=== PATIENT | female | born 1940 | race Caucasian/White ===

== ENCOUNTER 2023-09-04 15:30 | Emergency (ER) | payer MEDICARE, OTHER, SELFPAY ==
[2023-09-04] VITALS (7 sets, daily range): BP systolic 156–214; BP diastolic 103–126
--- NOTE | 2023-09-04 16:32 | ED.GENMED ---
History of Present Illness
<Alicia Tan PA-C - Last Filed: 09/06/23 00:00>
General
Chief Complaint: Musculo-Skeletal Complaint
Source: patient
Exam Limitations: none
Time Seen by Provider: 09/04/23 15:46
Nursing documentation reviewed up to this point in time: agreed with
Travel History
Have you had any contact with someone who has COVID-19?: No
Do you have any symptoms of coronavirus? Fever > 100 degrees, chills, cough, shortness of breath, sore throat, loss of taste or smell, muscle aches, or headache?: No
History of Present Illness
History of Present Illness:
Patient is a 82 year old female with hypertension, hyperlipidemia, atrial fibrillation on Eliquis presenting for evaluation of right upper arm pain and weakness after a fall earlier today. She states that she was wiping off her car when she slipped
on ice and fell backwards striking the back of her right upper arm on the car. She has since noticed a mild soreness and moderate weakness to the right upper arm. She denies any numbness, tingling in right arm or fingers. Patient has some baseline
weakness in right arm from prior stroke but this is much more severe.
She denies hitting her head or losing consciousness but does state that she fell hard. She denies headache, chest pain, shortness of breath, back pain, visual changes.
Patient is compliant with medications. Patient does take eliquis.
Past History
<Alicia Tan PA-C - Last Filed: 09/06/23 00:00>
Past History
ED Past Medical History: Arrthythmia (A fib on Eliquis), HTN and Other (HOCM)
Social History
Tobacco: Non-smoker
Living: with family
Phy Exam
<Alicia Tan PA-C - Last Filed: 09/06/23 00:00>
Physical Exam
Physical Exam:
General: Well appearing and non-toxic
Vitals: Hypertensive, otherwise VSS, afebrile
HEENT: Atraumatic, normocephalic; pupils equal round reactive to light bilaterally, extraocular muscles intact, protecting airway
Neck: appears supple, no cervical spine or midline spinal tenderness, normal range of motion
CV: Regular rate, irregular rhythm, no evidence of cyanosis
Resp: No evidence of respiratory distress, lungs clear no accessory muscle use
Abd: Non-distended
Extremities: moderate weakness of right upper arm with shortness abduction, weakness of right bicep with flexion; no weakness in wrist flexion/extension or concrete products machine operator strength; No obvious deformity of right upper arm, no bony tenderness to right shoulder,
right elbow, right wrist; sensation intact
Neuro: alert and oriented to person place time, speech normal, no focal neurologic deficit
Psych: Normal affect
Skin: Intact, no bruising or laceration
Course
<Alicia Tan PA-C - Last Filed: 09/06/23 00:00>
Orders/Labs/Results
Orders:
Orders
09/04/23 16:38
CR Shoulder, Trauma - Right Urgent
Reason For Exam: fall, right upper arm pain/weakness
Humerus, Right 2 Views [CR Humerus - Right Min 2 View*] Urgent
Comment:
Reason For Exam: fall, right upper arm pain/ weakness
09/04/23 16:45
CT Head W/o Iv Contrast Urgent
Comment:
Reason For Exam: fall
09/04/23 16:58
Acetaminophen [Tylenol] 650 mg PO NOW STA
09/04/23 17:31
Shoulder Immobilizer Right- Tx ONCE
09/04/23 18:01
Clonidine [Catapres] 0.1 mg PO NOW STA
Losartan [Cozaar] 50 mg PO NOW STA
09/04/23 18:28
Crisis Consult Urgent
Reason for Consult: Moderate risk for SI on screening questions
Vital Signs
Initial and Last Documented VS:
Initial Vital Signs
Temp Pulse Resp BP Pulse Ox
97.6 F 85 18 214/124 96
09/04/23 15:31 09/04/23 15:31 09/04/23 15:31 09/04/23 15:31 09/04/23 15:31
Last Documented Vital Signs
Temp Pulse Resp BP Pulse Ox
97.6 F 94 20 182/103 95
09/04/23 15:31 09/04/23 19:53 09/04/23 19:45 09/04/23 19:53 09/04/23 19:53
<Bob Naylor MD - Last Filed: 09/04/23 19:59>
Orders/Labs/Results
Orders:
Orders
09/04/23 16:38
CR Shoulder, Trauma - Right Urgent
Reason For Exam: fall, right upper arm pain/weakness
Humerus, Right 2 Views [CR Humerus - Right Min 2 View*] Urgent
Comment:
Reason For Exam: fall, right upper arm pain/ weakness
09/04/23 16:45
CT Head W/o Iv Contrast Urgent
Comment:
Reason For Exam: fall
09/04/23 16:58
Acetaminophen [Tylenol] 650 mg PO NOW STA
09/04/23 17:31
Shoulder Immobilizer Right- Tx ONCE
09/04/23 18:01
Clonidine [Catapres] 0.1 mg PO NOW STA
Losartan [Cozaar] 50 mg PO NOW STA
09/04/23 18:28
Crisis Consult Urgent
Reason for Consult: Moderate risk for SI on screening questions
Vital Signs
Initial and Last Documented VS:
Initial Vital Signs
Temp Pulse Resp BP Pulse Ox
97.6 F 85 18 214/124 96
09/04/23 15:31 09/04/23 15:31 09/04/23 15:31 09/04/23 15:31 09/04/23 15:31
Last Documented Vital Signs
Temp Pulse Resp BP Pulse Ox
97.6 F 94 20 182/103 95
09/04/23 15:31 09/04/23 19:53 09/04/23 19:45 09/04/23 19:53 09/04/23 19:53
<Alicia Tan PA-C - Last Filed: 09/06/23 00:00>
MDM/Problems Addressed
Differential Diagnosis Includes:
Brachial plexus injury, rotator cuff injury, humerus fracture, muscle strain, contusion, doubt CVA
MDM/Problems Addressed:
Patient is a 82 year old female presenting for evaluation of right upper arm soreness and weakness following fall earlier today. Patient slipped on ice while wiping off her car slipping and striking her posterior right arm on the car. She has had
mild soreness and weakness in right upper arm since. Patient denies any numbness or tingling in right arm or fingers. She denies hitting her head or LOC. No headache, neck pain, confusion, vomiting. Physical exam as documented above. She is
very well-appearing on exam, significantly hypertensive in triage with a BP of 214/124. History of hypertension but states her BP is usually high but in the 140s/90s she has no obvious deformity of the right upper arm and no bony tenderness of
right arm/shoulder. She does have significant weakness in right upper arm with abduction and flexion of elbow. She has full range of motion in right wrist and concrete products machine operator strength intact. Sensation grossly intact. Will get x-ray of right shoulder and
right humerus. Given impact, hypertension and Eliquis�will get CT of head. Will give Tylenol for pain. Will recheck blood pressure.
X-rays of right arm show an impacted fracture of neck/head of proximal right humerus, nondisplaced. I do suspect some degree of nerve injury given degree of weakness. Will place patient in shoulder immobilizer and have follow-up with orthopedics
outpatient. Patient states pain controlled with Tylenol. CT of head with no acute abnormality.
BP remains high�most recent reading 179/126. Patient remains asymptomatic. patient has as needed clonidine prescription at home that she has not taken today. Will give patient 0.1 mg clonidine, her nighttime dose of losartan 50 Mg. Will reassess
blood pressure prior to discharge
Chronic conditions affecting care:
Atrial fibrillation, hypertension, hyperlipidemia, CVA
Acute Exacerbation and/or Progression of Chronic Illness:
Right proximal humerus fracture, asymptomatic hypertension
<Alicia aTn PA-C - Last Filed: 09/06/23 00:00>
*Radiology
Radiology exam reviewed: preliminary read by ED provider and radiology read reviewed
*Pulse Oximetry
Patient hypoxic: no
*Supervisor Cell Maintenance Interpretation
Rate: Supervisor Cell Maintenance- N/A
*Critical Care Note
Total Time (30-74mins, 75-104mins- exclusive of procedures): Not Applicable
ED Attending Note
<Alicia Tan PA-C - Last Filed: 09/06/23 00:00>
-
Portions of this chart may have been created with voice recognition software.� Occasional wrong word or��sound alike� substitutions may have occurred due to the inherent limitations of voice recognition software.
<Bob Naylor MD - Last Filed: 09/04/23 19:59>
ED Attending Note
Patient seen and examined by attending physician: Yes
I performed the substantive portion of visit, reviewed & personally made and approve the management plan that is documented in note by myself or JES.: Yes
ED Attending Note:
82-year-old female slipped catching her right arm as she fell. Complaining of mild pain in the right arm but mostly complaining of weakness. Does not think she hit her head. Patient is anticoagulated.
On exam patient is nontoxic no distress. Elevated blood pressure. Normocephalic atraumatic. Neck nontender. No chest wall tenderness. No respiratory distress. No obvious areas of ecchymosis. Skin is warm and dry.
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 Patient does apparently have an old CVA. Extension flexion at the wrist within normal limits. Some mild weakness of biceps flexion and definitive weakness with shoulder abduction. No point tenderness to
the upper arm. No ecchymosis. Good distal pulses and color.
Impression impacted fracture right humerus. Suspect some nerve damage brachial plexus or related to the fracture. Also significant blood pressure elevation. Asymptomatic with this however. Will give a dose of her clonidine along with her regular
blood pressure medication. Finally patient apparently had some symptoms concerning for depression. Crisis contacted. Patient is not acutely suicidal. No indication for committal.
1954.... BP 182/102. No acute symptoms related to blood pressure. Likely mildly elevated secondary to the humerus fracture also. Stable for discharge to follow-up
Seen and cleared by crisis
Discharge Plan
Departure
Patient Disposition: Home (Routine Discharge)
Date of Disposition: 09/04/23
Time of Disposition: 19:57
Patient with high blood pressure during this ER visit?: Yes
Discharge Problem:
Proximal humerus fracture right, Elevated blood pressure reading roximal , Possible nerve injury right arm, Depression
Instructions: Depression, Adult (DC), Shoulder Fracture (DC), BLOOD PRESSURE
Prescriptions:
No Action
losartan 50 MG tablet
50 mg PO BID
nitroglycerin 0.4 MG tablet, sublingual
0.4 mg sublingual [id number] PRN (Reason: chest pain)
cholecalciferol (vitamin D3) 1,000 UNITS tablet
1,000 units PO DAILY
apixaban [Eliquis] 5 MG tablet
5 mg PO BID
aspirin 81 MG tablet,chewable
81 mg PO DAILY 0RF
ofloxacin [Ocuflox] 0.3 % drops
1 drp ophthalmic (eye) QID Qty: 10 0RF
Rx Instructions:
2 drops right eye QID x 7-10 days until eye is better.
clonidine HCl 0.1 mg tablet extended release 12 hr
0.1 mg PO BID PRN (Reason: high blood pressure) Qty: 10 0RF
clonidine HCl 0.1 MG tablet
0.1 mg PO BID@0800,1700 0RF
verapamil 240 MG tablet extended release
240 mg PO BID 30 Days 0RF
atorvastatin 40 MG tablet
40 mg PO QPM 30 Days 0RF
Referrals:
Krunal Horton MD [Active] -
Pete Dominguez MD [Family Provider] - Follow up in 2-3 days
Activity Restrictions/Additional Instructions:
Call the orthopedist first thing tomorrow morning for close follow-up this week
Interventions
Interventions:
*Risk Screen - Suicide Last Done: 09/04/23 18:20
*General Assessment Last Done: 09/04/23 18:20
*Neglect/Abuse Screening Last Done: 09/04/23 18:20
ED- Fall Risk Assessment Last Done: 09/04/23 20:26
*ED COVID-19 Vaccine History Last Done: 09/04/23 18:20
*Nursing Disposition Last Done: 09/04/23 20:26
ED-Musculoskeletal Assessment Last Done: 09/04/23 16:32
Discharge Date and Time
Discharge Date/Time: 09/04/23 20:47
[2023-09-04] MEDS: TYLENOL 650 MG PO (17:05)
[2023-09-04] MEDS: COZAAR 50 MG PO (18:15)
[2023-09-04] MEDS: CATAPRES 0.100000000000000006 MG PO (18:19)
== END 2023-09-04 20:47 | disposition home or self-care (01) ==
LOC: EMR 15:30
PROVIDERS: EMERGENCY PHYSICIAN Emergency Medicine; FAMILY PHYSICIAN Family Medicine
DX: S42.214A Unspecified nondisplaced fracture of surgical neck of right humerus, initial encounter for closed fracture (principal); S42.291A Other displaced fracture of upper end of right humerus, initial encounter for closed fracture; W00.0XXA Fall on same level due to ice and snow, initial encounter; I10 Essential (primary) hypertension; I48.91 Unspecified atrial fibrillation; E78.5 Hyperlipidemia, unspecified; F32.A Depression, unspecified; Z79.01 Long term (current) use of anticoagulants
CPT/HCPCS: 99284; 70450; 73030; 73060

== ENCOUNTER 2023-11-14 09:52 | Outpatient (RCR) | payer MEDICARE, OTHER, SELFPAY | END 2023-11-14 23:59 | disposition home or self-care (01) | LOC: RPT 09:52 | PROVIDERS: ATTENDING PHYSICIAN Physician Assistant Surgical; FAMILY PHYSICIAN Family Medicine | DX: S42.291A Other displaced fracture of upper end of right humerus, initial encounter for closed fracture (principal); Z73.6 Limitation of activities due to disability | CPT/HCPCS: 97110; 97162 ==

== ENCOUNTER 2023-12-21 15:00 | Outpatient (RCR) | payer MEDICARE, OTHER, SELFPAY | END 2023-12-21 23:59 | disposition home or self-care (01) | LOC: RPT 15:00 | PROVIDERS: ATTENDING PHYSICIAN Physician Assistant Surgical; FAMILY PHYSICIAN Family Medicine | DX: S42.291D Other displaced fracture of upper end of right humerus, subsequent encounter for fracture with routine healing (principal); M25.512 Pain in left shoulder; Z73.6 Limitation of activities due to disability | CPT/HCPCS: 97110 ==

== ENCOUNTER → 2024-05-13 14:53 | Outpatient (REF) | payer MEDICARE, OTHER, SELFPAY ==
[2024-05-13 16:35] LABS: % Basophils 0.4 % (0-2); % Immature Granulocytes 0.3 % (0-0.5); % Lymphocytes 15.3 % (20.5-51.1); % Monocytes 10.1 % (1.7-9.3); % Neutrophils 68.9 % (42.2-75.2); Absolute Eosinophils 0.3 10^3/uL (0-0.7); Absolute Monocytes 0.7 10^3/uL (0.1-0.6); Absolute Neutrophils 4.6 10^3/uL (1.4-6.5); Hematocrit 42.1 % (37.0-47.0); Hemoglobin 13.8 g/dL (12.0-16.0); Mean Corp Hgb Conc. 32.8 g/dL (33.0-37.0); Mean Corpuscular Hgb 31.9 pg (27.0-31.0); Mean Corpuscular Volume 97.2 fL (81.0-99.0); Mean Platelet Volume 10.2 fL (7.4-10.4); Nucleated Red Blood Cells % 0 %; Platelet Count 224 10^3/uL (130-400); Red Blood Cell Count 4.33 10^6/uL (4.20-5.40); Red Cell Dist. Width 14.3 % (11.5-14.5); White Blood Cell Count 6.7 10^3/uL (4.8-10.8)
[2024-05-13 17:13] LABS: ALT (SGPT) 43 U/L (0-35); AST (SGOT) 38 U/L (14-36); Alkaline Phosphatase 73 U/L (38-126); Blood Urea Nitrogen 19 mg/dl (7-17); Carbon Dioxide 24 mmol/L (22-30); Chloride 109 mmol/L (98-107); Glucose 104 mg/dl (70-99); HDL Cholesterol 55 mg/dl; LDL Cholesterol, Calculated 63 mg/dl; Potassium 4.3 mmol/L (3.5-5.1); Sodium 145 mmol/L (135-145); Total Bilirubin 0.6 mg/dl (0.2-1.3); Total Cholesterol 148 mg/dl (50-199); Total Protein 6.6 g/dl (6.3-8.2); Triglyceride 150 mg/dl (10-149); Very Low Density Lipoprotein 30 mg/dl (0-30)
[2024-05-13 17:25] LABS: TSH Reflex To Free T4 0.09 uIU/ml (0.47-4.68)
[2024-05-13 17:53] LABS: Free T4 1.17 ng/dl (0.78-2.19)
[2024-05-14 10:56] LABS: Glycohemoglobin (HgbA1c) 5.4 % (4.0-5.6)
== END ==
LOC: REG 14:53
PROVIDERS: ATTENDING PHYSICIAN Family Medicine; OTHER PHYSICIAN Student in an Organized Health Care Education/Training Program
DX: D50.0 Iron deficiency anemia secondary to blood loss (chronic) (principal); I10 Essential (primary) hypertension; E78.00 Pure hypercholesterolemia, unspecified; E66.3 Overweight; Z79.899 Other long term (current) drug therapy
CPT/HCPCS: 36415; 80053; 80061; 83036; 84439; 84443; 85025

== ENCOUNTER → 2024-07-08 14:17 | Outpatient (REF) | payer MEDICARE, OTHER, SELFPAY ==
[2024-07-08 15:41] LABS: ALT (SGPT) 41 U/L (0-35); AST (SGOT) 38 U/L (14-36); Albumin 4.2 g/dl (3.5-5.0); Alkaline Phosphatase 83 U/L (38-126); Blood Urea Nitrogen 22 mg/dl (7-17); Carbon Dioxide 25 mmol/L (22-30); Chloride 105 mmol/L (98-107); Glucose 85 mg/dl (70-99); Potassium 4.2 mmol/L (3.5-5.1); Sodium 141 mmol/L (135-145); eGFR > 60.00
== END ==
LOC: REG 14:17
PROVIDERS: ATTENDING PHYSICIAN Student in an Organized Health Care Education/Training Program
DX: I25.10 Atherosclerotic heart disease of native coronary artery without angina pectoris (principal)
CPT/HCPCS: 36415; 80053